=== PATIENT | female | born 1990 | race African-American/Black ===

== ENCOUNTER 2019-02-24 14:04 | Emergency (ER) | payer SELFPAY ==
[~2019-02-24] VITALS: Ht 154.9 cm; Wt 72.7 kg
[2019-02-24 14:14] VITALS: TEMP 100.1
[2019-02-24 14:37] LABS: COLLECTION METHOD CLEAN CATCH
[2019-02-24 14:43] LABS: BASO # 0.1 (0.0-0.2); BASO % 0.5 % (0.0-2.0); EOS # 0.1 (0.0-0.7); EOS % 1.4 % (0-4.0); GRAN # 6.6 (1.4-6.5); GRAN % 66.7 % (42.2-75.2); LYMPH # 2.5 (1.2-3.4); LYMPH % 24.8 % (20.0-51.0); MEAN CELL VOLUME 72 fl (80.0-100.0); MEAN CORPUSCULAR HEMOGLOBIN 26 pg (27.0-31.0); MEAN CORPUSCULAR HGB CONC 36 g/dl (33.0-37.0); MEAN PLATELET VOLUME 9.7 fl (7.4-10.4); MONO # 0.6 (0.1-0.6); MONO % 6.4 % (1.7-9.3); PLATELET COUNT 339 K/mm3 (130-400); RED BLOOD COUNT 4.66 M/mm3 (4.10-5.30); REDCELL DISTRIBUTION WIDTH-CV 16.3 % (11.5-14.5)
[2019-02-24 14:49] LABS: ALBUMIN 3.6 gm/dL (3.5-5.0); BILIRUBIN,TOTAL 0.4 mg/dL (0.0-1.0); CALCIUM 9.2 mg/dL (8.4-10.2); CREATININE, serum 0.53 (0.52-1.25); HEMATOCRIT 33.4 % (37.0-47.0); POTASSIUM 4.5 mmol/L (3.4-5.0); TOTAL PROTEIN 6.8 gm/dL (6.4-8.2)
[2019-02-24 14:50] LABS: MUCOUS Present /lpf; PH 6 (5-8); URINE APPEARANCE Hazy; URINE BACTERIA None Seen /hpf; URINE BILIRUBIN Negative (NEGATIVE); URINE BLOOD Negative (NEGATIVE); URINE COLOR Yellow; URINE GLUCOSE Negative (NEGATIVE); URINE KETONE Trace (NEGATIVE); URINE LEUKOCYTE ESTERASE Trace (NEGATIVE); URINE NITRATE Negative (NEGATIVE); URINE PROTEIN(semi-quant) 1+ (NEGATIVE); URINE UROBILINOGEN Negative (NEGATIVE)
[2019-02-24] MEDS ORDERED: FLAGYL500 MG PO (17:19)
[2019-02-24] MEDS ORDERED: ZOFRAN 4MG T4 MG/TAB PO (17:39)
[2019-02-24 17:59] VITALS: BP 104/63; PULSE 73
== END 2019-02-24 18:01 | disposition home or self-care (01) ==
LOC: COL.ER 14:04
PROVIDERS: Emergency Medicine
DX: O21.1 Hyperemesis gravidarum with metabolic disturbance (principal); O23.591 Infection of other part of genital tract in pregnancy, first trimester; O26.891 Other specified pregnancy related conditions, first trimester; O99.331 Smoking (tobacco) complicating pregnancy, first trimester; O20.0 Threatened abortion; B96.89 Other specified bacterial agents as the cause of diseases classified elsewhere; F17.210 Nicotine dependence, cigarettes, uncomplicated; Z3A.10 10 weeks gestation of pregnancy
CPT/HCPCS: J0696; J2405; J7030

== ENCOUNTER → 2021-10-01 | Outpatient (CLI) | payer MEDICAID ==
[~2021-10-01] MED LIST: FLAGYL500 MG PO; ZOFRAN 4MG T4 MG/TAB PO
== END ==
LOC: COL.RAD 10:57
DX: E05.00 Thyrotoxicosis with diffuse goiter without thyrotoxic crisis or storm (principal); R79.89 Other specified abnormal findings of blood chemistry
CPT/HCPCS: A9516

== ENCOUNTER 2021-12-10 10:29 | Emergency (ER) | payer MEDICAID ==
[~2021-12-10] VITALS: Ht 152.4 cm; Wt 75.0 kg
[2021-12-10 11:04] VITALS: BP 131/86; PULSE 68; TEMP 98.2
[2021-12-10 12:13] LABS: BASO % 0.6 % (0.0-2.0); EOS # 0.1 K/mm3 (0.0-0.7); EOS % 1.2 % (0.0-4.0); GRAN # 3.9 K/mm3 (1.4-6.5); GRAN % 55.8 % (42.2-75.2); HEMOGLOBIN 12.1 g/dl (12.5-16.0); LYMPH # 2.4 K/mm3 (1.2-3.4); LYMPH % 35.3 % (20.0-51.0); MEAN CELL VOLUME 73 fl (80.0-100.0); MEAN CORPUSCULAR HEMOGLOBIN 25 pg (27-31); MEAN CORPUSCULAR HGB CONC 34 g/dl (33.0-37.0); MEAN PLATELET VOLUME 9.3 fl (7.4-10.4); MONO # 0.5 K/mm3 (0.1-0.6); MONO % 6.8 % (1.7-9.3); PLATELET COUNT 363 K/mm3 (130-400); RED BLOOD COUNT 4.85 M/mm3 (4.10-5.30); REDCELL DISTRIBUTION WIDTH-CV 15.3 % (11.5-14.5)
[2021-12-10 12:14] LABS: HEMATOCRIT 35.3 % (37.0-47.0)
[2021-12-10 12:15] LABS: ALANINE AMINOTRANSFERASE 15 U/L (0-55); ALBUMIN 3.8 gm/dL (3.5-5.0); ALKALINE PHOSPHATASE 116 U/L (40-150); ANION GAP 8 mmol/L (7-16); AST,SGOT 19 U/L (5-34); BILIRUBIN,TOTAL 0.4 mg/dL (0.2-1.2); BLOOD UREA NITROGEN 13 mg/dL (7-19); CALCIUM 9.5 mg/dL (8.4-10.2); CARBON DIOXIDE 24 mmol/L (22-29); CHLORIDE 109 mmol/L (98-107); CREATININE, serum 0.69 mg/dL (0.57-1.11); GLUCOSE 86 mg/dL (70-99); POTASSIUM 3.9 mmol/L (3.5-4.5); SODIUM 141 mmol/L (136-145); TOTAL PROTEIN 7.4 gm/dL (6.2-8.1)
[2021-12-10 12:40] LABS: TSH w REFLEX < 0.003 uIU/mL (0.350-4.940)
== END 2021-12-10 13:15 | disposition left against medical advice (07) ==
LOC: COL.ER 10:29
PROVIDERS: Emergency Medicine
DX: K92.0 Hematemesis (principal); F17.200 Nicotine dependence, unspecified, uncomplicated

== ENCOUNTER 2022-02-04 02:01 | Emergency (ER) | payer MEDICAID ==
[2022-02-04 02:29] VITALS: TEMP 98.3
[2022-02-04 03:13] LABS: BASO # 0.1 K/mm3 (0.0-0.2); BASO % 1.1 % (0.0-2.0); EOS # 0.1 K/mm3 (0.0-0.7); EOS % 1.6 % (0.0-4.0); GRAN % 48.6 % (42.2-75.2); HEMOGLOBIN 12.1 g/dl (12.5-16.0); LYMPH # 3.3 K/mm3 (1.2-3.4); LYMPH % 40.2 % (20.0-51.0); MEAN CELL VOLUME 73 fl (80.0-100.0); MEAN CORPUSCULAR HEMOGLOBIN 26 pg (27-31); MEAN CORPUSCULAR HGB CONC 36 g/dl (33.0-37.0); MEAN PLATELET VOLUME 9.7 fl (7.4-10.4); MONO # 0.7 K/mm3 (0.1-0.6); MONO % 8.4 % (1.7-9.3); PLATELET COUNT 302 K/mm3 (130-400); RED BLOOD COUNT 4.67 M/mm3 (4.10-5.30); REDCELL DISTRIBUTION WIDTH-CV 15.6 % (11.5-14.5)
[2022-02-04 03:15] LABS: HEMATOCRIT 34.1 % (37.0-47.0)
[2022-02-04 03:51] LABS: ALANINE AMINOTRANSFERASE 16 U/L (0-55); ALBUMIN 3.7 gm/dL (3.5-5.0); ALKALINE PHOSPHATASE 94 U/L (40-150); ANION GAP 9 mmol/L (7-16); AST,SGOT 21 U/L (5-34); BILIRUBIN,TOTAL 0.5 mg/dL (0.2-1.2); BLOOD UREA NITROGEN 16 mg/dL (7-19); CALCIUM 9.3 mg/dL (8.4-10.2); CARBON DIOXIDE 22 mmol/L (22-29); CHLORIDE 109 mmol/L (98-107); GLUCOSE 96 mg/dL (70-99); POTASSIUM 3.6 mmol/L (3.5-4.5); SODIUM 140 mmol/L (136-145); TOTAL PROTEIN 7.2 gm/dL (6.2-8.1)
[2022-02-04 03:59] LABS: TROPONIN-I < 0.010 ng/mL (0.00-0.033)
[2022-02-04 05:13] VITALS: BP 116/85; PULSE 74
== END 2022-02-04 05:13 | disposition home or self-care (01) ==
LOC: COL.ER 02:01
PROVIDERS: Personal Emergency Response Attendant
DX: E05.90 Thyrotoxicosis, unspecified without thyrotoxic crisis or storm (principal); R07.9 Chest pain, unspecified; F17.200 Nicotine dependence, unspecified, uncomplicated
CPT/HCPCS: J7030

== ENCOUNTER 2024-04-01 16:35 | Emergency (ER) | payer MEDICAID ==
[~2024-04-01] VITALS: Ht 154.9 cm; Wt 65.9 kg
[2024-04-01 16:37] VITALS: TEMP 98.3
[2024-04-01 17:26] LABS: BASO # 0.1 K/mm3 (0.0-0.2); BASO % 0.8 % (0.0-2.0); EOS % 0.2 % (0.0-4.0); GRAN # 5.6 K/mm3 (1.4-6.5); GRAN % 64.2 % (42.2-75.2); HEMATOCRIT 39.4 % (37.0-47.0); HEMOGLOBIN 14.2 g/dl (12.5-16.0); LYMPH # 2.3 K/mm3 (1.2-3.4); LYMPH % 25.9 % (20.0-51.0); MEAN CELL VOLUME 75 fl (80.0-100.0); MEAN CORPUSCULAR HEMOGLOBIN 27 pg (27-31); MEAN CORPUSCULAR HGB CONC 36 g/dl (33.0-37.0); MEAN PLATELET VOLUME 9.4 fl (7.4-10.4); MONO # 0.7 K/mm3 (0.1-0.6); MONO % 8.4 % (1.7-9.3); PLATELET COUNT 366 K/mm3 (130-400); RED BLOOD COUNT 5.29 M/mm3 (4.10-5.30); REDCELL DISTRIBUTION WIDTH-CV 13.5 % (11.5-14.5)
[2024-04-01 17:37] LABS: BILIRUBIN,TOTAL 1.2 mg/dL (0.2-1.2); CALCIUM 9.8 mg/dL (8.4-10.2); CREATININE, serum 0.87 mg/dL (0.57-1.11); POTASSIUM 3.3 mEq/L (3.5-4.5); TOTAL PROTEIN 8.2 g/dl (6.2-8.1)
[2024-04-01 17:43] LABS: TROPONIN-I 0.011 ng/mL (0.00-0.033)
[2024-04-01 18:04] VITALS: BP 145/99; PULSE 96
== END 2024-04-01 18:10 | disposition home or self-care (01) ==
LOC: COL.ER 16:35
PROVIDERS: Nurse Practitioner
DX: R07.9 Chest pain, unspecified (principal); I25.2 Old myocardial infarction; F17.200 Nicotine dependence, unspecified, uncomplicated

== ENCOUNTER 2024-05-12 18:20 | Emergency (ER) | payer MEDICAID ==
[~2024-05-12] VITALS: Ht 154.9 cm; Wt 77.3 kg
[2024-05-12 18:31] VITALS: TEMP 98.4
[2024-05-12] MEDS ORDERED: NS 1,000 ML IV ONE (19:15)
[2024-05-12] MEDS ORDERED: Meclizine 25 MG TAB PO ONE (19:15)
[2024-05-12] MEDS ORDERED: diphenhydrAMINE 50 MG/ML 1 ML VIAL IV ONE (19:15)
[2024-05-12 19:27] LABS: BASO # 0.1 K/mm3 (0.0-0.2); EOS # 0.2 K/mm3 (0.0-0.7); EOS % 1.7 % (0.0-4.0); GRAN # 4.8 K/mm3 (1.4-6.5); GRAN % 53.5 % (42.2-75.2); HEMATOCRIT 37.2 % (37.0-47.0); HEMOGLOBIN 12.4 g/dl (12.5-16.0); LYMPH # 3.1 K/mm3 (1.2-3.4); LYMPH % 34.6 % (20.0-51.0); MEAN CELL VOLUME 76 fl (80.0-100.0); MEAN CORPUSCULAR HEMOGLOBIN 25 pg (27-31); MEAN CORPUSCULAR HGB CONC 33 g/dl (33.0-37.0); MEAN PLATELET VOLUME 8.9 fl (7.4-10.4); MONO # 0.8 K/mm3 (0.1-0.6); MONO % 8.9 % (1.7-9.3); PLATELET COUNT 387 K/mm3 (130-400); REDCELL DISTRIBUTION WIDTH-CV 14.6 % (11.5-14.5)
[2024-05-12 19:33] LABS: URINE APPEARANCE CLEAR (CLEAR/HAZY); URINE BLOOD TRACE (NEGATIVE); URINE COLOR YELLOW (YELLOW); URINE GLUCOSE NEGATIVE (NEGATIVE); URINE KETONE NEGATIVE (NEGATIVE); URINE NITRATE NEGATIVE (NEGATIVE); URINE PROTEIN(semi-quant) NEGATIVE (NEGATIVE)
[2024-05-12 19:44] LABS: COLLECTION METHOD CLEAN CATCH
[2024-05-12 19:59] LABS: ALBUMIN 3.5 g/dL (3.5-5.0); BILIRUBIN,TOTAL 0.4 mg/dL (0.2-1.2); CALCIUM 9.8 mg/dL (8.4-10.2); CREATININE, serum 0.8 mg/dL (0.57-1.11); POTASSIUM 4.2 mEq/L (3.5-4.5); TOTAL PROTEIN 7.3 g/dl (6.2-8.1)
[2024-05-12] MEDS ORDERED: cefTRIAXone 1 G in Water For Injection,Sterile 10 ML IV ONE (22:30)
[2024-05-12] MEDS ORDERED: CEPHALEXIN500 M1 PO (22:42)
[2024-05-12] MEDS ORDERED: ANTIVERT 25MG25 MG PO (22:42)
[2024-05-12 23:03] VITALS: BP 132/94; PULSE 81
== END 2024-05-12 23:06 | disposition home or self-care (01) ==
LOC: COL.ER 18:20
PROVIDERS: Physician Assistant
DX: R42 Dizziness and giddiness (principal); T43.595A Adverse effect of other antipsychotics and neuroleptics, initial encounter; N39.0 Urinary tract infection, site not specified
CPT/HCPCS: J0696; J1200; J7030

== ENCOUNTER 2024-05-27 00:57 | Emergency (ER) | payer SELFPAY ==
[~2024-05-27] VITALS: Ht 154.9 cm; Wt 76.4 kg
[~2024-05-27 00:57] MED LIST changes: +ANTIVERT 25MG25 MG PO; +CEPHALEXIN500 M1 PO
[2024-05-27 00:58] VITALS: PULSE 85; TEMP 97.7
[2024-05-27 01:29] LABS: BASO # 0.1 K/mm3 (0.0-0.2); BASO % 1.1 % (0.0-2.0); EOS # 0.2 K/mm3 (0.0-0.7); EOS % 2.1 % (0.0-4.0); GRAN # 4.6 K/mm3 (1.4-6.5); GRAN % 52.5 % (42.2-75.2); HEMOGLOBIN 12.1 g/dl (12.5-16.0); LYMPH % 34.4 % (20.0-51.0); MEAN CELL VOLUME 77 fl (80.0-100.0); MEAN CORPUSCULAR HEMOGLOBIN 26 pg (27-31); MEAN CORPUSCULAR HGB CONC 35 g/dl (33.0-37.0); MEAN PLATELET VOLUME 9.1 fl (7.4-10.4); MONO # 0.9 K/mm3 (0.1-0.6); MONO % 9.8 % (1.7-9.3); PLATELET COUNT 344 K/mm3 (130-400); RED BLOOD COUNT 4.59 M/mm3 (4.10-5.30); REDCELL DISTRIBUTION WIDTH-CV 14.9 % (11.5-14.5)
[2024-05-27 01:42] LABS: INR 1.1 (0.8-3.0); PROTHROMBIN TIME 11.7 SECONDS (9.7-12.8)
[2024-05-27 01:45] LABS: PARTIAL THROMBOPLASTIN TIME 30.6 SECONDS (26.0-37.0)
[2024-05-27 01:53] LABS: ALANINE AMINOTRANSFERASE 24 U/L (0-55); ALBUMIN 3.5 g/dL (3.5-5.0); ALKALINE PHOSPHATASE 72 U/L (40-150); ANION GAP 8 mmol/L (7-16); AST,SGOT 25 U/L (5-34); BLOOD UREA NITROGEN 18 mg/dL (7-19); CALCIUM 8.7 mg/dL (8.4-10.2); CHLORIDE 109 mEq/L (98-107); CREATININE, serum 0.78 mg/dL (0.57-1.11); GLUCOSE 89 mg/dL (70-99); LIPASE 33 U/L (8-78); POTASSIUM 3.9 mEq/L (3.5-4.5); SODIUM 138 mEq/L (136-145); TOTAL PROTEIN 7.6 g/dl (6.2-8.1)
[2024-05-27 01:54] LABS: D-DIMER < 200.00 ng/mLDDu (200-230)
[2024-05-27 01:59] LABS: TROPONIN-I 0.014 ng/mL (0.00-0.033)
[2024-05-27 02:02] LABS: HEMATOCRIT 35.1 % (37.0-47.0)
[2024-05-27 02:18] LABS: BILIRUBIN,TOTAL < 0.5 mg/dL (0.2-1.2)
== END 2024-05-27 01:58 | disposition left against medical advice (07) ==
LOC: COL.ER 00:57
PROVIDERS: Emergency Medicine
DX: R07.89 Other chest pain (principal); F17.210 Nicotine dependence, cigarettes, uncomplicated

== ENCOUNTER 2024-06-03 17:38 | Emergency (ER) | payer MEDICAID ==
[~2024-06-03] VITALS: Ht 154.9 cm; Wt 77.3 kg
[2024-06-03 17:48] VITALS: TEMP 98.2
[2024-06-03] MEDS ORDERED: NS 1,000 ML IV ONE (18:30)
[2024-06-03 19:01] LABS: BASO # 0.1 K/mm3 (0.0-0.2); BASO % 1.1 % (0.0-2.0); EOS # 0.1 K/mm3 (0.0-0.7); EOS % 1.8 % (0.0-4.0); GRAN # 3.5 K/mm3 (1.4-6.5); GRAN % 47.6 % (42.2-75.2); HEMATOCRIT 37.5 % (37.0-47.0); LYMPH # 2.9 K/mm3 (1.2-3.4); LYMPH % 38.5 % (20.0-51.0); MEAN CELL VOLUME 77 fl (80.0-100.0); MEAN CORPUSCULAR HEMOGLOBIN 27 pg (27-31); MEAN CORPUSCULAR HGB CONC 35 g/dl (33.0-37.0); MEAN PLATELET VOLUME 9.3 fl (7.4-10.4); MONO # 0.8 K/mm3 (0.1-0.6); MONO % 10.7 % (1.7-9.3); PLATELET COUNT 371 K/mm3 (130-400); REDCELL DISTRIBUTION WIDTH-CV 14.6 % (11.5-14.5)
[2024-06-03 19:18] LABS: ALANINE AMINOTRANSFERASE 32 U/L (0-55); ALBUMIN 3.8 g/dL (3.5-5.0); ALKALINE PHOSPHATASE 70 U/L (40-150); ANION GAP 9 mmol/L (7-16); AST,SGOT 25 U/L (5-34); BILIRUBIN,TOTAL 0.5 mg/dL (0.2-1.2); BLOOD UREA NITROGEN 15 mg/dL (7-19); CHLORIDE 106 mEq/L (98-107); GLUCOSE 98 mg/dL (70-99); POTASSIUM 4.1 mEq/L (3.5-4.5); SODIUM 137 mEq/L (136-145); TOTAL PROTEIN 7.6 g/dl (6.2-8.1)
[2024-06-03 19:25] LABS: TROPONIN-I < 0.010 ng/mL (0.00-0.033)
[2024-06-03 20:50] LABS: COLLECTION METHOD CLEAN CATCH
[2024-06-03 20:58] VITALS: BP 131/90; PULSE 77
[2024-06-03 21:15] LABS: PH 5.5 (5.0-8.5); URINE APPEARANCE CLEAR (CLEAR/HAZY); URINE BLOOD TRACE (NEGATIVE); URINE COLOR YELLOW (YELLOW); URINE GLUCOSE NEGATIVE (NEGATIVE); URINE KETONE NEGATIVE (NEGATIVE); URINE NITRATE NEGATIVE (NEGATIVE); URINE PROTEIN(semi-quant) NEGATIVE (NEGATIVE); URINE UROBILINOGEN 0.2 E.U/dL (0.2-1.0)
== END 2024-06-03 20:58 | disposition home or self-care (01) ==
LOC: COL.ER 17:38
PROVIDERS: Physician Assistant
DX: R53.83 Other fatigue (principal)
CPT/HCPCS: J7030

== ENCOUNTER 2024-06-13 04:59 | Emergency (ER) | payer MEDICAID ==
[~2024-06-13] VITALS: Ht 154.9 cm; Wt 77.3 kg
[2024-06-13 05:09] VITALS: TEMP 98
[2024-06-13] MEDS ORDERED: Mag/Al Hydrox/Simeth Susp 30 ML CUP PO ONE (05:30)
[2024-06-13 06:00] VITALS: BP 111/74; PULSE 85
== END 2024-06-13 06:00 | disposition home or self-care (01) ==
LOC: COL.ER 04:59
DX: R07.89 Other chest pain (principal)

== ENCOUNTER 2024-06-20 00:27 | Emergency (ER) | payer MEDICAID ==
[~2024-06-20] VITALS: Ht 157.5 cm; Wt 81.8 kg
[2024-06-20 00:28] VITALS: TEMP 97.7
[2024-06-20 01:39] VITALS: BP 141/92; PULSE 73
== END 2024-06-20 01:45 | disposition home or self-care (01) ==
LOC: COL.ER 00:27
DX: R07.9 Chest pain, unspecified (principal)

== ENCOUNTER 2024-07-06 14:06 | Emergency (ER) | payer MEDICAID ==
[~2024-07-06] VITALS: Ht 154.9 cm; Wt 82.3 kg
[2024-07-06 14:42] LABS: COLLECTION METHOD CLEAN CATCH
[2024-07-06 14:50] LABS: PH 5.5 (5.0-8.5); URINE APPEARANCE CLEAR (CLEAR/HAZY); URINE BLOOD 1+ (NEGATIVE); URINE COLOR YELLOW (YELLOW); URINE GLUCOSE NEGATIVE (NEGATIVE); URINE KETONE TRACE (NEGATIVE); URINE NITRATE NEGATIVE (NEGATIVE); URINE PROTEIN(semi-quant) 1+ (NEGATIVE)
[2024-07-06 15:07] LABS: TRICYCLIC ANTIDEPRESS URINE NEGATIVE (NEGATIVE)
[2024-07-06 15:49] LABS: BASO # 0.1 K/mm3 (0.0-0.2); BASO % 1.1 % (0.0-2.0); EOS # 0.1 K/mm3 (0.0-0.7); EOS % 0.8 % (0.0-4.0); HEMATOCRIT 36.3 % (37.0-47.0); HEMOGLOBIN 13.1 g/dl (12.5-16.0); LYMPH # 2.4 K/mm3 (1.2-3.4); LYMPH % 33.4 % (20.0-51.0); MEAN CELL VOLUME 74 fl (80.0-100.0); MEAN CORPUSCULAR HEMOGLOBIN 27 pg (27-31); MEAN CORPUSCULAR HGB CONC 36 g/dl (33.0-37.0); MEAN PLATELET VOLUME 9.5 fl (7.4-10.4); MONO # 0.5 K/mm3 (0.1-0.6); MONO % 7.6 % (1.7-9.3); PLATELET COUNT 345 K/mm3 (130-400); RED BLOOD COUNT 4.93 M/mm3 (4.10-5.30)
[2024-07-06 16:09] LABS: ALANINE AMINOTRANSFERASE 12 U/L (0-55); ALBUMIN 3.9 g/dL (3.5-5.0); ALKALINE PHOSPHATASE 64 U/L (40-150); ANION GAP 8 mmol/L (7-16); AST,SGOT 17 U/L (5-34); BILIRUBIN,TOTAL 0.7 mg/dL (0.2-1.2); BLOOD UREA NITROGEN 11 mg/dL (7-19); CALCIUM 9.4 mg/dL (8.4-10.2); CHLORIDE 108 mEq/L (98-107); CREATININE, serum 0.81 mg/dL (0.57-1.11); GLUCOSE 91 mg/dL (70-99); SODIUM 138 mEq/L (136-145); TOTAL PROTEIN 7.7 g/dl (6.2-8.1)
[2024-07-06 16:19] LABS: ALCOHOL(ethanol),MEDICAL < 10 mg/dL (0-10); SALICYLATE < 5.0 mg/dL (15.0-30.0)
[2024-07-06 16:28] LABS: TSH w REFLEX 2.397 uIU/mL (0.350-4.940)
[2024-07-07 13:13] VITALS: BP 118/76; PULSE 78; TEMP 98.7
== END 2024-07-07 13:00 ==
LOC: COL.ER 14:06
PROVIDERS: Nurse Practitioner
DX: R44.0 Auditory hallucinations (principal); Z86.69 Personal history of other diseases of the nervous system and sense organs

== ENCOUNTER 2024-07-19 02:12 | Emergency (ER) | payer MEDICAID ==
[~2024-07-19] VITALS: Ht 154.9 cm; Wt 77.3 kg
[2024-07-19 02:13] VITALS: TEMP 98.3
[2024-07-19] MEDS ORDERED: NS 1,000 ML IV ONE (02:30)
[2024-07-19 02:33] LABS: BASO # 0.1 K/mm3 (0.0-0.2); EOS # 0.1 K/mm3 (0.0-0.7); EOS % 2.1 % (0.0-4.0); GRAN # 2.9 K/mm3 (1.4-6.5); GRAN % 47.8 % (42.2-75.2); HEMATOCRIT 37.5 % (37.0-47.0); HEMOGLOBIN 13.3 g/dl (12.5-16.0); LYMPH # 2.5 K/mm3 (1.2-3.4); LYMPH % 40.5 % (20.0-51.0); MEAN CELL VOLUME 76 fl (80.0-100.0); MEAN CORPUSCULAR HEMOGLOBIN 27 pg (27-31); MEAN CORPUSCULAR HGB CONC 36 g/dl (33.0-37.0); MONO # 0.5 K/mm3 (0.1-0.6); MONO % 8.4 % (1.7-9.3); PLATELET COUNT 373 K/mm3 (130-400); RED BLOOD COUNT 4.97 M/mm3 (4.10-5.30); REDCELL DISTRIBUTION WIDTH-CV 13.8 % (11.5-14.5)
[2024-07-19 02:56] LABS: ALANINE AMINOTRANSFERASE 13 U/L (0-55); ALBUMIN 3.7 g/dL (3.5-5.0); ALKALINE PHOSPHATASE 73 U/L (40-150); ANION GAP 11 mmol/L (7-16); AST,SGOT 16 U/L (5-34); BILIRUBIN,TOTAL 0.6 mg/dL (0.2-1.2); BLOOD UREA NITROGEN 14 mg/dL (7-19); CALCIUM 9.4 mg/dL (8.4-10.2); CHLORIDE 108 mEq/L (98-107); CREATININE, serum 0.85 mg/dL (0.57-1.11); GLUCOSE 119 mg/dL (70-99); POTASSIUM 3.4 mEq/L (3.5-4.5); SODIUM 138 mEq/L (136-145); TOTAL PROTEIN 7.7 g/dl (6.2-8.1)
[2024-07-19 03:06] LABS: TROPONIN-I < 0.010 ng/mL (0.00-0.033)
[2024-07-19 03:56] VITALS: BP 121/79; PULSE 65
== END 2024-07-19 03:56 | disposition home or self-care (01) ==
LOC: COL.ER 02:12
PROVIDERS: Emergency Medicine
DX: R07.89 Other chest pain (principal); F41.9 Anxiety disorder, unspecified; Z79.899 Other long term (current) drug therapy
CPT/HCPCS: J7030

== ENCOUNTER 2024-07-27 10:23 | Emergency (ER) | payer MEDICAID ==
[~2024-07-27] VITALS: Ht 152.4 cm; Wt 77.3 kg
[2024-07-27 10:24] VITALS: BP 125/89; PULSE 85; TEMP 98.7
[2024-07-27 12:34] LABS: COLLECTION METHOD CLEAN CATCH
[2024-07-27 12:42] LABS: URINE APPEARANCE CLEAR (CLEAR/HAZY); URINE BLOOD 1+ (NEGATIVE); URINE COLOR YELLOW (YELLOW); URINE GLUCOSE NEGATIVE (NEGATIVE); URINE KETONE NEGATIVE (NEGATIVE); URINE NITRATE NEGATIVE (NEGATIVE); URINE PROTEIN(semi-quant) TRACE (NEGATIVE)
[2024-07-27] MEDS ORDERED: Fosfomycin 3 G PACKET PO ONE (13:00)
[2024-07-27] MEDS ORDERED: MONUROL 3 GM3 G/PKT PO (13:18)
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
== END 2024-07-27 13:20 | disposition home or self-care (01) ==
LOC: COL.ER 10:23
PROVIDERS: Physician Assistant
DX: T76.21XA Adult sexual abuse, suspected, initial encounter (principal); Y00.XXXA Assault by blunt object, initial encounter; Y92.009 Unspecified place in unspecified non-institutional (private) residence as the place of occurrence of the external cause

== ENCOUNTER 2024-07-29 17:34 | Emergency (ER) | payer MEDICAID ==
[~2024-07-29] VITALS: Ht 152.4 cm; Wt 78.2 kg
[~2024-07-29 17:34] MED LIST changes: +MONUROL 3 GM3 G/PKT PO
[2024-07-29 17:43] VITALS: BP 125/84; TEMP 98.6
[2024-07-29] MEDS ORDERED: NS 1,000 ML IV ONE (19:00)
[2024-07-29 19:17] LABS: BASO # 0.1 K/mm3 (0.0-0.2); BASO % 1.3 % (0.0-2.0); EOS # 0.1 K/mm3 (0.0-0.7); EOS % 1.6 % (0.0-4.0); GRAN # 3.1 K/mm3 (1.4-6.5); GRAN % 50.6 % (42.2-75.2); HEMOGLOBIN 12.3 g/dl (12.5-16.0); LYMPH # 2.3 K/mm3 (1.2-3.4); LYMPH % 37.5 % (20.0-51.0); MEAN CELL VOLUME 75 fl (80.0-100.0); MEAN CORPUSCULAR HEMOGLOBIN 26 pg (27-31); MEAN CORPUSCULAR HGB CONC 35 g/dl (33.0-37.0); MEAN PLATELET VOLUME 9.3 fl (7.4-10.4); MONO # 0.6 K/mm3 (0.1-0.6); PLATELET COUNT 327 K/mm3 (130-400); RED BLOOD COUNT 4.72 M/mm3 (4.10-5.30); REDCELL DISTRIBUTION WIDTH-CV 13.7 % (11.5-14.5)
[2024-07-29 19:20] LABS: HEMATOCRIT 35.6 % (37.0-47.0)
[2024-07-29 19:21] LABS: COLLECTION METHOD CLEAN CATCH
[2024-07-29 19:29] LABS: URINE APPEARANCE CLEAR (CLEAR/HAZY); URINE BLOOD 2+ (NEGATIVE); URINE COLOR YELLOW (YELLOW); URINE GLUCOSE NEGATIVE (NEGATIVE); URINE KETONE TRACE (NEGATIVE); URINE NITRATE NEGATIVE (NEGATIVE); URINE PROTEIN(semi-quant) 1+ (NEGATIVE)
[2024-07-29 19:32] LABS: ALBUMIN 3.8 g/dL (3.5-5.0); BILIRUBIN,TOTAL 0.6 mg/dL (0.2-1.2); CALCIUM 8.8 mg/dL (8.4-10.2); CREATININE, serum 0.77 mg/dL (0.57-1.11); POTASSIUM 3.6 mEq/L (3.5-4.5)
[2024-07-29 19:34] LABS: TRICYCLIC ANTIDEPRESS URINE NEGATIVE (NEGATIVE)
[2024-07-30 00:31] VITALS: PULSE 75
== END 2024-07-30 00:31 | disposition home or self-care (01) ==
LOC: COL.ER 17:34
PROVIDERS: Nurse Practitioner
DX: T74.21XA Adult sexual abuse, confirmed, initial encounter (principal); R51.9 Headache, unspecified; M54.50 Low back pain, unspecified; M79.632 Pain in left forearm; Y07.031 Male partner, former, perpetrator of maltreatment and neglect; Y09 Assault by unspecified means
CPT/HCPCS: J7030

== ENCOUNTER 2024-07-31 13:10 | Emergency (ER) | payer MEDICAID ==
[~2024-07-31] VITALS: Ht 152.4 cm; Wt 77.3 kg
[2024-07-31 14:56] LABS: BASO # 0.1 K/mm3 (0.0-0.2); BASO % 0.9 % (0.0-2.0); EOS # 0.1 K/mm3 (0.0-0.7); EOS % 1.1 % (0.0-4.0); GRAN # 4.3 K/mm3 (1.4-6.5); GRAN % 60.6 % (42.2-75.2); HEMOGLOBIN 12.8 g/dl (12.5-16.0); LYMPH # 2.1 K/mm3 (1.2-3.4); LYMPH % 30.2 % (20.0-51.0); MEAN CELL VOLUME 75 fl (80.0-100.0); MEAN CORPUSCULAR HEMOGLOBIN 26 pg (27-31); MEAN CORPUSCULAR HGB CONC 35 g/dl (33.0-37.0); MEAN PLATELET VOLUME 9.6 fl (7.4-10.4); MONO # 0.5 K/mm3 (0.1-0.6); MONO % 7.1 % (1.7-9.3); PLATELET COUNT 320 K/mm3 (130-400); RED BLOOD COUNT 4.84 M/mm3 (4.10-5.30); REDCELL DISTRIBUTION WIDTH-CV 13.8 % (11.5-14.5)
[2024-07-31 14:58] LABS: HEMATOCRIT 36.3 % (37.0-47.0)
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
[2024-07-31 15:23] LABS: ALANINE AMINOTRANSFERASE 12 U/L (0-55); ALBUMIN 3.7 g/dL (3.5-5.0); ALKALINE PHOSPHATASE 66 U/L (40-150); ANION GAP 8 mmol/L (7-16); AST,SGOT 16 U/L (5-34); BILIRUBIN,TOTAL 0.9 mg/dL (0.2-1.2); BLOOD UREA NITROGEN 9 mg/dL (7-19); CALCIUM 9.2 mg/dL (8.4-10.2); CHLORIDE 109 mEq/L (98-107); CREATININE, serum 0.83 mg/dL (0.57-1.11); GLUCOSE 93 mg/dL (70-99); POTASSIUM 3.7 mEq/L (3.5-4.5); SODIUM 140 mEq/L (136-145); TOTAL PROTEIN 6.7 g/dl (6.2-8.1)
[2024-07-31 15:33] LABS: ALCOHOL(ethanol),MEDICAL < 10 mg/dL (0-10)
--- NOTE | 2024-07-31 15:48 | NUR ---
garment worker spoke with [facility] [employer] and confirmed that Eden was placing patient's three children in [facility] today. Worker filed a CPS report #[id number].
[2024-07-31 15:51] LABS: SALICYLATE < 5.0 mg/dL (15.0-30.0)
[2024-07-31 16:54] LABS: COLLECTION METHOD CLEAN CATCH
[2024-07-31 17:08] LABS: URINE APPEARANCE CLEAR (CLEAR/HAZY); URINE BLOOD 2+ (NEGATIVE); URINE COLOR YELLOW (YELLOW); URINE GLUCOSE NEGATIVE (NEGATIVE); URINE KETONE NEGATIVE (NEGATIVE); URINE NITRATE NEGATIVE (NEGATIVE); URINE PROTEIN(semi-quant) NEGATIVE (NEGATIVE)
[2024-07-31 17:18] LABS: TRICYCLIC ANTIDEPRESS URINE NEGATIVE (NEGATIVE)
[2024-07-31 19:28] VITALS: BP 127/85; PULSE 56; TEMP 98.2
== END 2024-07-31 19:28 | disposition home or self-care (01) ==
LOC: COL.ER 13:10
PROVIDERS: Physician Assistant
DX: R46.89 Other symptoms and signs involving appearance and behavior (principal)